=== PATIENT | female | born 1955 | race Caucasian/White ===

== ENCOUNTER 2017-07-15 21:57 | Emergency (ER) | payer MEDICAID | END 2017-07-16 00:30 | disposition home or self-care (01) | LOC: D.ER 21:57 | DX: M51.36 Other intervertebral disc degeneration, lumbar region (principal); S39.012A Strain of muscle, fascia and tendon of lower back, initial encounter; X58.XXXA Exposure to other specified factors, initial encounter; Y93.89 Activity, other specified; Y92.019 Unspecified place in single-family (private) house as the place of occurrence of the external cause ==

== ENCOUNTER 2017-09-23 10:04 | Day surgery (SDC) | payer MEDICAID ==
[2017-09-22 10:33] LABS: HEMOGLOBIN 15.3 g/dL (12-16); MCH 30.4 pg (26.0-34.0); MCV 89.5 fL (80.0-100.0); MEAN PLATELET VOLUME 9.4 fL (7.4-10.4); RBC 5.03 10x6/uL (4.00-5.40); RDW 12.5 % (11.5-14.5); WBC 6.4 10x3/uL (4.8-10.8)
[2017-09-22 12:38] VITALS: BP 117/78; BMI 38.4
[~2017-09-23] VITALS: Ht 149.9 cm; Wt 86.2 kg
--- NOTE | ~2017-09-23 | OP ---
PATIENT NAME: MANDO ANDERSEN MEDICAL RECORD: [id number] LOCATION:D.OPS ADMISSION DATE: SURGEON: SD BEACH MD DATE OF OPERATION: 09/23/2017 PREOPERATIVE DIAGNOSES: 1. Trigger finger of the right hand long finger. 2. Trigger finger of the right hand little finger. POSTOPERATIVE DIAGNOSES: 1. Trigger finger of the right hand long finger. 2. Trigger finger of the right hand little finger. PROCEDURES: 1. Right hand long finger trigger finger release. 2. Right hand little finger trigger finger release. SURGEON: Sd Beach MD ANESTHESIA: General. INTRAOPERATIVE COMPLICATIONS: None. SUMMARY OF PATHOLOGIC FINDINGS: Consistent with the preoperative diagnosis of trigger finger, right. The patient had a nodularity of the flexor tendon mass that was locking at the A1 viktoriya, which had become somewhat stenotic. OPERATIVE SUMMARY IN DETAIL: After obtaining the appropriate preoperative orthopedic surgery consent as well as anesthetic consultation, evaluation, and clearance operating room and placed on the operating table in supine position. After general anesthesia was administered, tourniquet was placed in the proximal aspect of the right upper extremity. Right upper extremity was then prepped and draped in routine sterile fashion. The arm was elevated and exsanguinated, tourniquet was inflated to 350 mmHg. Routine incisions were made just over the A1 viktoriya on both the long and index fingers. Attention was first turned to the long finger. Dissection was carried down to the level of the A1 viktoriya. Under direct visualization, the A1 viktoriya was gently snipped with Littler scissors. The tendon was observed and had some attritional changes but no full thickness tearing. This process was repeated on the little finger. It was carried down. Again, the A1 viktoriya was identified and incised in its entirety. The fingers then had smooth translation with no catching, wound was irrigated and closed with 4-0 Prolene. The area was locally infiltrated with 0.25% Marcaine plain. Sterile dressings were applied. Tourniquet was deflated. The patient was awakened and taken to the recovery room in stable condition. All final needle and sponge counts were correct. TRANSINT:[id number] Voice Confirmation ID: [id number] DOCUMENT ID: [id number] OPERATIVE REPORT [id number] MANDO ANDERSEN MD, JAMES KEVIN at 1516 CC: [id number] DICTATION DATE: 09/26/17 0821 [employer] [facility]STER: 09/26/17 1133 [facility] 09/23/17 [id number] [place] [address]
[~2017-09-23 10:04] MED LIST: CYCLOBENZAPRINE10 MG PO; CYMBALTA20 MG PO; LOPRESSOR25 MG PO; NEXIUM20 MG PO
[2017-09-23 11:14] VITALS: BP 144/77; Ht 149.9 cm; Wt 86.2 kg
[2017-09-23] MEDS ORDERED: HYDROCODONE-APA1 TAB PO (13:22)
== END 2017-09-23 15:00 | disposition home or self-care (01) ==
LOC: D.OPS 10:04
PROVIDERS: Anesthesiology
DX: M65.331 Trigger finger, right middle finger (principal); M65.351 Trigger finger, right little finger; K21.9 Gastro-esophageal reflux disease without esophagitis; I49.9 Cardiac arrhythmia, unspecified; Z01.812 Encounter for preprocedural laboratory examination